=== PATIENT | male | born 1955 | race Caucasian/White ===

== ENCOUNTER 2021-04-21 20:43 | Emergency (ER) | payer OTHER ==
[2021-04-21 21:05] VITALS: BP 137/89; PULSE 78; TEMP 98.3; BMI 27.0
[2021-04-21] MEDS ORDERED: DIPHTH,PERTUSS(ACELL),TET 0.5 ML DISP.SYRIN IM ONE (23:50)
[2021-04-22] MEDS ORDERED: DIPHTH,PERTUSS(ACELL),TET 0.5 ML DISP.SYRIN IM ONE (00:28)
[2021-04-22] MEDS ORDERED: CEPHALEXIN MONOHYDRATE 500 MG CAPSULE (UD) PO ONE (00:30)
[2021-04-22] MEDS ORDERED: CEPHALEXIN MONOHYDRATE 500 MG CAPSULE (UD) ONE (00:33)
== END 2021-04-22 00:37 | disposition home or self-care (01) ==
LOC: JERFT 20:43
PROC: 3E0234Z Introduction of Serum, Toxoid and Vaccine into Muscle, Percutaneous Approach (ICD-10-PCS; principal; 2021-04-21)
DX: S62.662B Nondisplaced fracture of distal phalanx of right middle finger, initial encounter for open fracture (principal); S62.664B Nondisplaced fracture of distal phalanx of right ring finger, initial encounter for open fracture; S61.212A Laceration without foreign body of right middle finger without damage to nail, initial encounter; S60.222A Contusion of left hand, initial encounter; S60.221A Contusion of right hand, initial encounter; W23.1XXA Caught, crushed, jammed, or pinched between stationary objects, initial encounter
CPT/HCPCS: 73130-TC-LT-FY; 73130-TC-RT-FY; 90715; 99284-25

== ENCOUNTER 2021-08-30 10:13 | Emergency (ER) | payer OTHER ==
[2021-08-30 10:34] VITALS: BP 170/81; PULSE 73; TEMP 97.8; BMI 24.3
[2021-08-30] MEDS ORDERED: KETOROLAC TROMETHAMINE 30 MG/1 ML VIAL IM ONE (10:45)
[2021-08-30] MEDS ORDERED: KETOROLAC TROMETHAMINE 30 MG/1 ML VIAL ONE (10:46)
== END 2021-08-30 11:44 | disposition home or self-care (01) ==
LOC: JERFT 10:13 → JER 10:13 → JERFT 11:44
PROC: 3E0233Z Introduction of Anti-inflammatory into Muscle, Percutaneous Approach (ICD-10-PCS; principal; 2021-08-30)
DX: S20.222A Contusion of left back wall of thorax, initial encounter (principal); S60.222A Contusion of left hand, initial encounter; W01.0XXA Fall on same level from slipping, tripping and stumbling without subsequent striking against object, initial encounter
CPT/HCPCS: 71101-TC-LT-FY; 73110-TC-LT-FY; 73130-TC-LT-FY; 99284-25